=== PATIENT | male | born 1950 | race Caucasian/White ===

== ENCOUNTER → 2019-11-26 | Outpatient (CLI) | payer MEDICARE, BC ==
[~2019-11-26] MED LIST: VISIPAQUE 320 MG/ML, 150ML BOTTLE ONE
[2019-11-26 09:12] LABS: BASOPHILS # (AUTO) 0.02 x10^3/uL (0-0.1); BASOPHILS % (AUTO) 0 % (0-1); EOSINOPHILS # (AUTO) 0.11 x10^3/uL (0-0.4); EOSINOPHILS % (AUTO) 2 % (1-7); LYMPHOCYTES # (AUTO) 1.75 x10^3/uL (1-3.4); LYMPHOCYTES % (AUTO) 31 % (22-44); MD NO; MEAN CORPUSCULAR HEMOGLOBIN 32.4 pg (27.5-34.5); MEAN CORPUSCULAR HGB CONC 33.6 g/dL (33.2-36.2); MEAN CORPUSCULAR VOLUME 96.5 fL (81-97); MEAN PLATELET VOLUME 7.5 fL (7.4-10.4); MONOCYTES # (AUTO) 0.56 x10^3/uL (0.2-0.8); MONOCYTES % (AUTO) 10 % (2-9); NEUTROPHILS # (AUTO) 3.21 x10^3/uL (1.8-6.8); NEUTROPHILS % (AUTO) 57 % (42-75); PLATELET COUNT 236 x10^3/uL (130-400); RED BLOOD COUNT 4.66 x10^6/uL (4.38-5.82); RED CELL DISTRIBUTION WIDTH 12.9 % (9.4-14.8)
[2019-11-26 10:05] LABS: ANION GAP 5 mmol/L (5-15); CALCIUM 9.5 mg/dL (8.5-10.1); CHLORIDE 105 mmol/L (98-107); CREATININE 1.25 mg/dL (0.7-1.3)
== END | disposition home or self-care (01) ==
LOC: CVU 08:42
PROVIDERS: ATTEND Internal Medicine Cardiovascular Disease
DX: Z01.810 Encounter for preprocedural cardiovascular examination (principal); I35.0 Nonrheumatic aortic (valve) stenosis; R06.02 Shortness of breath; I65.29 Occlusion and stenosis of unspecified carotid artery
CPT/HCPCS: 36415; 71275; 74174; 80048; 85025; 93880; 94010; 94726; 94729; Q9967

== ENCOUNTER 2019-12-05 08:19 | Day surgery (SDC) | payer MEDICARE, BC ==
[~2019-12-05] VITALS: Ht 175.3 cm; Wt 107.7 kg
[2019-12-05] MEDS ORDERED: SODIUM CHLORIDE 0.9% 1,000 ML IV SCH (09:15)
[2019-12-05 09:17] VITALS: BP 144/98
[2019-12-05] MEDS ORDERED: LOSA100T14 PO (09:30)
[2019-12-05] MEDS ORDERED: FENTANYL PF 100 MCG/2ML ONE (10:06)
[2019-12-05] MEDS ORDERED: LIDOCAINE-MPF 1%, 5ML ONE (10:06)
[2019-12-05] MEDS ORDERED: HEPARIN 1,000 UNITS/ML, 10ML ONE (10:06)
[2019-12-05] MEDS ORDERED: BIVALIRUDIN 250 MG ONE (10:06)
[2019-12-05] MEDS ORDERED: VERAPAMIL 2.5 MG/ML, 2ML ONE (10:06)
[2019-12-05] MEDS ORDERED: MIDAZOLAM 1 MG/ML, 5ML ONE (10:06)
[2019-12-05] MEDS ORDERED: TICAGRELOR 90 MG TABLET ONE (10:06)
== END 2019-12-05 12:44 | disposition home or self-care (01) ==
LOC: CACL 08:19
PROVIDERS: ATTEND Internal Medicine Cardiovascular Disease
DX: I35.0 Nonrheumatic aortic (valve) stenosis (principal); I25.119 Atherosclerotic heart disease of native coronary artery with unspecified angina pectoris; I11.0 Hypertensive heart disease with heart failure; I50.30 Unspecified diastolic (congestive) heart failure; Z79.899 Other long term (current) drug therapy; Z88.0 Allergy status to penicillin
CPT/HCPCS: 93454; 99156; C1769; C1894; J1644; J2250; J3010; Q9967; J0583

== ENCOUNTER → 2020-01-27 | Outpatient (CLI) | payer MEDICARE, BC ==
[~2020-01-27] MED LIST changes: +ASPI81TA45 PO; +CLOP75TA PO; +IMIQ1CRE TP; +LOSA100T14 PO; -VISIPAQUE 320 MG/ML, 150ML BOTTLE ONE
== END | disposition home or self-care (01) ==
LOC: CVU 08:57
PROVIDERS: ATTEND Internal Medicine Cardiovascular Disease
DX: I34.8 Other nonrheumatic mitral valve disorders (principal); I10 Essential (primary) hypertension; I65.29 Occlusion and stenosis of unspecified carotid artery; Z95.4 Presence of other heart-valve replacement
CPT/HCPCS: 93306

== ENCOUNTER → 2020-12-20 | Outpatient (CLI) | payer MEDICARE, BC | END | disposition home or self-care (01) | LOC: CVU 12:17 | PROVIDERS: ATTEND Internal Medicine Cardiovascular Disease | DX: Z01.810 Encounter for preprocedural cardiovascular examination (principal); I34.8 Other nonrheumatic mitral valve disorders; I65.29 Occlusion and stenosis of unspecified carotid artery; I11.9 Hypertensive heart disease without heart failure | CPT/HCPCS: 93306; 93356 ==